=== PATIENT | female | born 1990 | race Caucasian/White ===

== ENCOUNTER 2016-11-05 13:37 | Emergency (ER) | payer MEDICAID ==
[~2016-11-05] VITALS: Ht 157.5 cm; Wt 87.3 kg
[~2016-11-05 13:37] MED LIST: FIORICET PO; PREN1TAB17 BU; PREN1TAB31 PO; TER25 BC
[2016-11-05 13:44] VITALS: Ht 157.5 cm; Wt 87.3 kg
[2016-11-05] MEDS ORDERED: MECLIZINE 12.5 MG TAB ONE (14:44)
[2016-11-05] MEDS ORDERED: MECLIZINE 12.5 MG TAB PO ONE (15:00)
[2016-11-05] MEDS ORDERED: ONDANSETRON (ODT) 4 MG TAB ODT STA (16:10)
[2016-11-05 16:47] LABS: BASOPHILS % 0.5 % (0.0-2.0); EOSINOPHILS # 0.2 10^3/ul (0.0-0.5); EOSINOPHILS % 1.7 % (0.0-7.0); HEMATOCRIT 40.6 % (37.0-47.0); HEMOGLOBIN 13.9 g/dl (12.0-16.0); LYMPHOCYTES # 2.9 10^3/ul (0.8-2.9); MEAN CORPUSCULAR HEMOGLOBIN 29.1 pg (29.0-33.0); MEAN CORPUSCULAR HGB CONC 34.2 g/dl (32.0-37.0); MEAN PLATELET VOLUME 7.9 fl (7.4-10.4); MONOCYTE # 0.6 10^3/ul (0.3-0.9); NEUTROPHIL # 5.8 10^3/ul (1.6-7.5); NEUTROPHILS % 60.8 % (39.0-77.0); PLATELET COUNT 313 10^3/UL (140-440); RED BLOOD COUNT 4.78 10^6/ul (4.20-5.40); RED CELL DISTRIBUTION WIDTH 12.5 % (11.5-14.5); UNCORRECTED WBC 9.5 10^3/ul (4.8-10.8); WHITE BLOOD COUNT 9.5 10^3/ul (4.8-10.8)
[2016-11-05 16:51] LABS: CONDITION 1
[2016-11-05 16:55] LABS: ALBUMIN 4.6 g/dl (3.3-4.9)
[2016-11-05 16:56] LABS: POTASSIUM 3.9 mmol/L (3.5-5.1)
[2016-11-05 16:58] LABS: ALBUMIN/GLOBULIN RATIO 1.17; CREATININE 0.63 mg/dl (0.44-1.00); TOTAL PROTEIN 8.5 g/dl (6.1-8.1)
[2016-11-05] MEDS ORDERED: MECL-77 PO (17:26)
[2016-11-05] MEDS ORDERED: ONDA8TAB14 PO (17:26)
--- NOTE | 2016-11-05 17:29 | ERD ---
ER Documentation Chief Complaint Date/Time DATE: 11/05/16 TIME: 17:26 Chief Complaint NAUSEA W/ DIZZINESS SINCE SUNDAY (HAS NOT VOMITED) HPI This 26 female complains of nausea and dizziness for last 2 days. She is here with her daughter who has vomiting and diarrhea. There is no history of fevers , chest pain, shortness breath. The dizziness is a spinning type dizziness which is worse with movement and sitting up. Patient denies any history of trauma. Denies any recent illnesses. ROS All systems reviewed and are negative except as per history of present illness. Medications Home Meds Active Scripts Ondansetron (Ondansetron Odt) 8 Mg Tab.rapdis, 8 MG PO Q6H Y for NAUSEA AND/OR VOMITING, #8 TAB Prov:SARY OAKLEY MD 11/05/16 Meclizine Hcl* (Meclizine Hcl*) 25 Mg Tablet, 25 MG PO Q8H Y for DIZZINESS, #20 TAB Prov:SARY OAKLEY MD 11/05/16 Acetamin/Butalbital/Caffeine* (Fioricet*) [id number] Tab, 1 TAB PO Q6H Y for PAIN, #20 TAB Prov:Tessy Montes PA-C 09/23/16 Reported Medications Terbutaline Sulfate* (Terbutaline Sulfate*) 2.5 Mg Tablet, 2.5 MG BC Q6, TAB 11/12/14 Vit-Iron Fumarate-FA ( Tablet) 1 Each Tablet, 1 TAB BU AC DINNER, TAB 11/11/14 Vits #90-Iron Fum-FA ( Formula) 1 Each Tablet, 1 TAB PO DAILY, TAB 07/27/14 Allergies Allergies: Coded Allergies: No Known Allergies (Verified Allergy, Unknown, 11/11/14) PMhx/Soc History of Surgery: Yes (GALLSTONES) Anesthesia Reaction: No Hx Neurological Disorder: No Hx Respiratory Disorders: No Hx Cardiac Disorders: No Hx Psychiatric Problems: No Hx Miscellaneous Medical Probl: No Hx Alcohol Use: No Hx Substance Use: No Hx Tobacco Use: No Physical Exam Vitals Vital Signs Date Time Temp Pulse Resp B/P Pulse Ox O2 Delivery O2 Flow Rate FiO2 11/05/16 13:44 98.6 100 18 140/78 97 Physical Exam Const: [] Alert, [id number]. Head: Atraumatic Eyes: Normal Conjunctiva ENT: Normal External Ears, Nose and Mouth. Neck: Full range of motion..~ No meningismus. Resp: Clear to auscultation bilaterally Cardio: Regular rate and rhythm, no murmurs Abd: Soft, non tender, non distended. Normal bowel sounds Skin: No petechiae or rashes Back: No midline or flank tenderness Ext: No cyanosis, or edema Neur: Awake and alert. Cranial nerves II through XII grossly intact. Reproducible vertigo or dizziness to the right and with sitting. Normal gait. Psych: Normal Mood and Affect Result Diagram: 11/05/16 1635 11/05/16 1635 Results 24 hrs Laboratory Tests Test 11/05/16 16:35 Alanine Aminotransferase (ALT/SGPT) 40IU/L Albumin 4.6g/dl Albumin/Globulin Ratio 1.17 Alkaline Phosphatase 98IU/L Anion Gap 19 Aspartate Amino Transf (AST/SGOT) 19IU/L Basophils # 0.010^3/ul Basophils % 0.5% Blood Urea Nitrogen 12mg/dl Calcium Level 9.0mg/dl Carbon Dioxide Level 24mmol/L Chloride Level 107mmol/L Creatinine 0.63mg/dl Direct Bilirubin 0.00mg/dl Eosinophils # 0.210^3/ul Eosinophils % 1.7% Globulin 3.90g/dl Glucose Level 87mg/dl Hematocrit 40.6% Hemoglobin 13.9g/dl Indirect Bilirubin 0.0mg/dl Lymphocytes # 2.910^3/ul Lymphocytes % 31.0% Mean Corpuscular Hemoglobin 29.1pg Mean Corpuscular Hemoglobin Concent 34.2g/dl Mean Corpuscular Volume 85.0fl Mean Platelet Volume 7.9fl Monocytes # 0.610^3/ul Monocytes % 6.0% Neutrophils # 5.810^3/ul Neutrophils % 60.8% Nucleated Red Blood Cells # 0.010^3/ul Nucleated Red Blood Cells % 0.0/100WBC Platelet Count 48305^3/UL Potassium Level 3.9mmol/L Red Blood Count 4.7810^6/ul Red Cell Distribution Width 12.5% Sodium Level 146mmol/L Total Bilirubin 0.0mg/dl Total Protein 8.5g/dl White Blood Count 9.510^3/ul Current Medications Medications (Trade) Dose Ordered Sig/Shalom Route PRN Reason Start Time Stop Time Status Last Admin Dose Admin Meclizine HCl (Antivert) 25 mg ONCE ONCE PO 11/05/16 15:00 11/05/16 15:01 DC 11/05/16 14:46 Ondansetron HCl (Zofran Odt) 8 mg ONCE STAT ODT 11/05/16 16:10 11/05/16 16:12 DC Procedures/MDM Urine is negative for infection, glucose and blood and hCG is negative. Patient was given Antivert 25 mg of mouth and had persistent dizziness. She was given Zofran 8 mg of mouth and the CBC was checked which is normal CMP was negative. Patient presents with vertigo type dizziness and uncertain etiology. Signs and symptoms are not suggestive of intracranial hemorrhage, ischemia, mass-effect, neurologic deficit, bacterial infection. May have nonspecific positional vertigo and was treated with Antivert and Zofran and instructions for rest and fluids at home and further observation. Patient should return for new or worsening symptoms with primary care doctor this week. I do not think symptoms warrant CT scanner and necessary radiation to the patient should recheck for new or worsening symptoms. Departure Diagnosis: Primary Impression: Dizzy Condition: Stable Patient Instructions: Dizziness, Unk Cause Additional Instructions: Examinations normal today. Uncertain cause of dizziness recommend rest at home , drink fluids and recheck for new or worsening symptoms, chest pain, shortness breath, vomiting, fevers, new symptoms. SARY OAKLEY MD Nov 05, 2016 17:28
== END 2016-11-05 18:07 | disposition home or self-care (01) ==
LOC: FTE 13:37
DX: R42 Dizziness and giddiness (principal); R11.2 Nausea with vomiting, unspecified
CPT/HCPCS: 80053; 82962; 85025; Z7502; 99283

== ENCOUNTER 2017-03-10 22:31 | Emergency (ER) | payer SELFPAY ==
[~2017-03-10] VITALS: Wt 90.5 kg
[~2017-03-10 22:31] MED LIST changes: +MECL-77 PO; +ONDA8TAB14 PO
== END 2017-03-10 23:00 | disposition left against medical advice (07) ==
LOC: FTE 22:31
DX: Z53.21 Procedure and treatment not carried out due to patient leaving prior to being seen by health care provider (principal)